=== PATIENT | male | born 1965 | race Caucasian/White ===

== ENCOUNTER → 2019-12-06 13:58 | Outpatient (BNVA) | payer MEDICARE, MEDICAID, SELFPAY | PROVIDERS: Visit Provider Nurse Practitioner Psychiatric/Mental Health | DX: F20.0 Paranoid schizophrenia (principal); F17.210 Nicotine dependence, cigarettes, uncomplicated | CPT/HCPCS: 99213 ==

== ENCOUNTER → 2020-01-03 13:25 | Outpatient (BNVA) | payer MEDICARE, MEDICAID, SELFPAY | PROVIDERS: Visit Provider Nurse Practitioner Psychiatric/Mental Health | DX: F20.0 Paranoid schizophrenia (principal); F17.210 Nicotine dependence, cigarettes, uncomplicated | CPT/HCPCS: 99213 ==

== ENCOUNTER → 2020-01-31 13:57 | Outpatient (BNVA) | payer MEDICARE, MEDICAID, SELFPAY | PROVIDERS: Visit Provider Nurse Practitioner Psychiatric/Mental Health | DX: F20.0 Paranoid schizophrenia (principal); F17.210 Nicotine dependence, cigarettes, uncomplicated | CPT/HCPCS: 99213 ==

== ENCOUNTER → 2020-02-28 07:39 | Outpatient (BNVA) | payer MEDICARE, MEDICAID, SELFPAY | PROVIDERS: Visit Provider Nurse Practitioner Psychiatric/Mental Health | DX: R32 Unspecified urinary incontinence (principal); F20.0 Paranoid schizophrenia; F17.210 Nicotine dependence, cigarettes, uncomplicated | CPT/HCPCS: 99213 ==

== ENCOUNTER → 2020-03-28 08:11 | Outpatient (BNVA) | payer MEDICARE, MEDICAID, SELFPAY | PROVIDERS: Visit Provider Nurse Practitioner Psychiatric/Mental Health | DX: F20.0 Paranoid schizophrenia (principal); F17.210 Nicotine dependence, cigarettes, uncomplicated | CPT/HCPCS: 99213 ==

== ENCOUNTER → 2020-04-25 08:15 | Outpatient (BNVA) | payer MEDICARE, MEDICAID, SELFPAY | PROVIDERS: Visit Provider Nurse Practitioner Psychiatric/Mental Health | DX: F20.0 Paranoid schizophrenia (principal); F17.210 Nicotine dependence, cigarettes, uncomplicated; Z79.899 Other long term (current) drug therapy | CPT/HCPCS: 99213 ==

== ENCOUNTER → 2020-05-23 07:33 | Outpatient (BNVA) | payer MEDICARE, MEDICAID, SELFPAY | PROVIDERS: Visit Provider Nurse Practitioner Psychiatric/Mental Health | DX: F20.0 Paranoid schizophrenia (principal); F17.210 Nicotine dependence, cigarettes, uncomplicated | CPT/HCPCS: 99213 ==

== ENCOUNTER → 2020-06-21 08:11 | Outpatient (BNVA) | payer MEDICARE, MEDICAID, SELFPAY | PROVIDERS: Visit Provider Nurse Practitioner Psychiatric/Mental Health | DX: F20.0 Paranoid schizophrenia (principal); F17.210 Nicotine dependence, cigarettes, uncomplicated | CPT/HCPCS: 99213 ==

== ENCOUNTER 2024-03-10 16:57 | Inpatient (IN) | payer MEDICARE, MEDICAID, SELFPAY ==
[2024-03-10 17:06] VITALS: BP 153/85; PULSE 119; TEMP 36.9; O2SAT 95; BMI 22.3
--- NOTE | 2024-03-10 17:10 | ED.C_ITS ---
HPI - Psych 2 General: Chief Complaint: Psychiatric Symptoms Stated Complaint: 96 Hr Hold Time Seen by Provider: 03/10/24 17:05 Source: patient and police Limitations: no limitations History of Present Illness: 58-year-old male has history of schizoph jacy has not been taking his meds patient's family is placed him on a 96-hour hold. They state that he been very erratic and seeing people not taking care of himself and are scared that he is going to harm himself or someone else with him not taking his meds and his erratic behavior. Associated symptoms: Reports auditory hallucinations and depression Review of Systems 2 Const: Denies: fever(s), chills, body aches or change in appetite ENMT: Denies: throat pain or dental pain Card: Denies: chest pain Resp: Denies: dyspnea GI: Denies: abdominal pain, nausea, vomiting or diarrhea Musc: Denies: neck pain or back pain Skin/Breast: Denies: rash Neuro: Denies: headache(s) Psych: Reports: depression, paranoia and auditory hallucinations [facility] ED 2 PFSH: Medical History Cigarette nicotine dependence Chronic paranoid schizophrenia Social History (Updated 01/03/20 @ 13:53 by Essence Berger RN) Smoking and tobacco/nicotine status: current every day tobacco/nicotine user cigarettes Packs smoked per day: 1 Quit status (tobacco/nicotine): not considering quitting Second hand smoke exposure: Yes Physical Exam 2 Const: COMMON NORMALS: no acute distress, patient oriented x3 and healthy appearing HENMT: COMMON NORMALS: normocephalic and atraumatic HEAD & SCALP: n ormocephalic and atraumatic Neck/C-Spine: COMMON NORMALS: full ROM and supple Chest: COMMONS NORMALS: normal inspection of the chest Resp: COMMON NORMALS: normal respiratory effort Cardio: COMMON NORMALS: regular rate, regular rhythm and No murmurs present (Cardio) RATE: regular rate RHYTHM: regular rhythm Extremity: COMMON NORMALS: normal to inspection and full ROM Neuro: COMMON NORMALS: patient oriented x3, moves all extremities and no focal motor deficits Psych: COMMON NORMALS: mental status grossly normal, Normal thought process present and cooperative ATTITUDE: Yes paranoid ACTIVITY/MOTOR BEHAVIOR: Y es fidgeting THOUGHT PROCESS: Normal thought process present Skin: COMMON NORMALS: no rashes or lesions noted and no wounds GENERAL SKIN EXAM: no rashes or lesions noted Course 2 Vital Signs: Vital signs: Vital Signs Temperature 98.5 F 03/10/24 17:06 Pulse Rate 119 H 03/10/24 17:06 Blood Pressure 153/85 03/10/24 17:06 Pulse Oximetry 95 03/10/24 17:06 Oxygen Delivery Me thod Room Air 03/10/24 17:06 [facility] - Psych Medical Decision Making Patient presents here with history of schizophrenia has not been taking his meds had increased psychoses he is under guardianship of his mother who is wanting him admitted he is medically cleared and will admit to the psych [facility]. Medical Records I reviewed the patient's medical records. Lab Data I reviewed the patient's lab results. 03/10/24 17:38 03/10/24 17:38 Laboratory Results WBC 9.34 10^3/uL (3.29-11.43) 03/10/24 17:38 RBC 4.80 10^6/uL (3.85-5.65) 03/10/24 17:38 Hgb 14.30 g/dL (11.27-16.99) 03/10/24 17:38 Hct 44.4 % (37-53) 03/10/24 17:38 MCV 92.5 fl (82-101) 03/10/24 17:38 MCH 29.8 pg (27-33) 03/10/24 17:38 MCHC 32.2 g/dL (30-55) 03/10/24 17:38 RDW 12.8 % (12.1-15.1) 03/10/24 17:38 Plt Count 306 10^3/cmm (157-399) 03/10/24 17:38 MPV 10.4 fL (7.4-10.4) 03/10/24 17:38 Neut % (Auto) 56.4 % 03/10/24 17:38 Lymph % (Auto) 34.3 % 03/10/24 17:38 [place] % (Auto) 6.6 % 03/10/24 17:38 Eos % (Auto) 1.3 % 03/10/24 17:38 Baso % (Auto) 1.0 % 03/10/24 17:38 Neut # (Auto) 5.27 10^3/uL (1.8-7.7) 03/10/24 17:38 Lymph # (Auto) 3.2 10^3/uL (0.8-4.8) 03/10/24 17:38 [place] # (Auto) 0.6 10^3/uL (0.2-0.9) 03/10/24 17:38 Eos # (Auto) 0.1 10^3/uL (0.0-0.8) 03/10/24 17:38 Baso # (Auto) 0.1 10^3/uL (0.0-0.1) 03/10/24 17:38 Nucleated RBC % (auto) 0 % 03/10/24 17:38 Nucleated RBCs # 0.0 /100WBC 03/10/24 17:38 Sodium 142 mmol/L (136-145) 03/10/24 17:38 Potassium 3.7 mmol/L (3.5-5.1) 03/10/24 17:38 Chloride 104 mmol/L (98-107) 03/10/24 17:38 Carbon Dioxide 26 mmol/L (22-29) 03/10/24 17:38 Anion Gap 15.7 (5-19) 03/10/24 17:38 BUN 6 mg/dL (8-23) L 03/10/24 17:38 Creatinine 0.7 mg/dL (0.7-1.2) 03/10/24 17:38 GFR Calculation 115.0 mL/min (90-130) 03/10/24 17:38 Glucose 143 mg/dL (65-115) H 03/10/24 17:38 Calculated Osmolality 294 mOsm/kg (285-295) 03/10/24 17:38 Calcium 9.1 mg/dL (8.5-10.5) 03/10/24 17:38 Total Bilirubin 0.2 mg/dL (0.15-1.2) 03/10/24 17:38 AST 16 U/L (0-40) 03/10/24 17:38 ALT 10 U/L (0-41) 03/10/24 17:38 Alkaline Phosphatase 78 U/L (40-130) 03/10/24 17:38 Total Protein 6.5 g/dL (6.6-8.7) L 03/10/24 17:38 Albumin 4.0 g/dL (3.5-5.2) 03/10/24 17:38 Globulin 2.5 g/dL (1.3-4.6) 03/10/24 17:38 Salicylates < 0.3 mg/dL (3-10) L 03/10/24 17:38 Urine Opiates Screen Negative ng/mL (Negative) 03/10/24 17:42 Acetaminophen < 5.0 ug/mL (10-30) L 03/10/24 17:38 Ur Barbiturates Screen Negative ng/mL (Negative) 03/10/24 17:42 Ur Phencyclidine Scrn Negative ng/mL (Negative) 03/10/24 17:42 Ur Amphetamines Screen Negative ng/mL (Negative) 03/10/24 17:42 U Benzodiazepines Scrn Negative ng/mL (Negative) 03/10/24 17:42 Urine Cocaine Screen Negative ng/mL (Negative) 03/10/24 17:42 U Marijuana (THC) Screen Positive ng/mL (Negative) H 03/10/24 17:42 Ethyl Alcohol < 10 mg/dL (0-10) 03/10/24 17:38 No radiology studies performed this visit Discharge Plan Discharge Admit Provider: Aiden Madsen Condition: Stable Coding Level of Care Code ED Director Of [employer]atering [employer] for [employer]
[2024-03-10] MEDS: haloperidol inj 5 mg/mL INJ 1 mL IM (17:17)
[2024-03-10] MEDS: LORazepam 2 mg/mL INJ 10 mL MDV 1 MG IM (17:18)
[2024-03-10 18:14] LABS: Amphetamines Screen Urine Negative (Negative); Barbiturates Screen Urine Negative (Negative); Benzodiazepines Screen Urine Negative (Negative); Cocaine Screen Urine Negative (Negative); Opiate Screen Urine Negative (Negative); PCP Screen Urine Negative (Negative); THC Screen Urine Positive (Negative)
[2024-03-10 18:28] LABS: Basophils # 0.1 10^3/uL (0.0-0.1); Eosinophils # 0.1 10^3/uL (0.0-0.8); Eosinophils % 1.3 %; Hematocrit 44.4 % (37-53); Lymphocytes # 3.2 10^3/uL (0.8-4.8); Lymphocytes % 34.3 %; Mean Corpuscular HGB Conc 32.2 g/dL (30-55); Mean Corpuscular Hemoglobin 29.8 pg (27-33); Mean Corpuscular Volume 92.5 fl (82-101); Mean Platelet Volume 10.4 fL (7.4-10.4); Monocytes # 0.6 10^3/uL (0.2-0.9); Monocytes % 6.6 %; Neutrophils # 5.27 10^3/uL (1.8-7.7); Neutrophils % 56.4 %; Nucleated Red Blood Cells % 0 %; Platelet Count 306 10^3/cmm (157-399); Red Cell Distribution Width 12.8 % (12.1-15.1); White Blood Count 9.34 10^3/uL (3.29-11.43)
[2024-03-10 18:53] LABS: Alanine Aminotransferase 10 U/L (0-41); Alkaline Phosphatase 78 U/L (40-130); Aspartate Amino Transferase 16 U/L (0-40); Blood Urea Nitrogen 6 mg/dL (8-23); Calcium 9.1 mg/dL (8.5-10.5); Carbon Dioxide 26 mmol/L (22-29); Chloride 104 mmol/L (98-107); Creatinine Clr Calc Pharmacy 117.7937; Globulin 2.5 g/dL (1.3-4.6); Glucose 143 mg/dL (65-115); Osmolality Calculated 294 mOsm/kg (285-295); Sodium 142 mmol/L (136-145); Total Bilirubin 0.2 mg/dL (0.15-1.2); Total Protein 6.5 g/dL (6.6-8.7)
[2024-03-10 19:11] LABS: Acetaminophen < 5.0 ug/mL (10-30); Alcohol Level < 10 mg/dL (0-10); Anion Gap 15.7 (5-19); Potassium 3.7 mmol/L (3.5-5.1); Salicylate < 0.3 mg/dL (3-10)
[2024-03-10 19:46] VITALS: BP 137/90; PULSE 103; RESP 20; O2SAT 96
[2024-03-10 20:01] VITALS: BP 137/90; PULSE 103; RESP 16; O2SAT 96
[2024-03-10 20:04] VITALS: BP 120/77; PULSE 105; RESP 18; TEMP 36.8; O2SAT 96
--- NOTE | 2024-03-10 20:38 | PC.NURSE ---
96 Hour Involuntary Hold Rights have been read to the patient and a copy of the same has been given to him. Patient verbally acknowledges understanding of Rights. Pressure Controller Sade Manriquez was present at the time of presentation of Rights.
[2024-03-11 06:00] VITALS: BP 92/54; PULSE 99; RESP 18; TEMP 36.7; O2SAT 97
--- NOTE | 2024-03-11 07:36 | PC.NURSE ---
During morning assessment, patient denies SI, HI, AVH, depression, and anxiety. Patient denied any pain and any questions or concerns.
--- NOTE | 2024-03-11 13:34 | P.NPUHP_ITS ---
Providers/Chief Complaint 2 Admitting Physician: Aiden Madsen MD Chief Complaint: 96 Hr Hold HPI NPU History of Present Illness Trace Ames is a 58 year old male who presented to the emergency department on a 96-hour hold with significant affidavits provided by the patient's family. Patient was admitted to the neuropsychiatric unit for further evaluation and treatment. Patient had stated that they had selected the wrong person to be placed in the hospital and states that he did not need to be here. Several of the supportive affidavits had suggested that the patient had not been compliant with his psychiatric medication. He had not been taking care of himself as he had not been showering or brushing for months. There had been concern that the patient was giving his items away to strangers. The patient had denied this. He was a poor historian and stated that he had been living at his apartment at the [facility] and that he had been taking medication for his mental health problems but that he had not been taking it in more than a year. He had reported that once his Invega was taken for 4 years he no longer needed to take it. There had been reports in the affidavit that the patient had been scaring his neighbors that live around him due to his alleged bizarre behavior. The patient had indicated that he did not like to be around others. He states that he tolerates his niece managing his bills as he reports that he struggles with making payments by himself. He does report that he has been able to cook at home. He denies having depressed mood. He denies having any auditory or visual hallucinations. He minimizes any use of illicit drugs. He reports that he had not been hospitalized recently in any psychiatric facility. Inpatient psychiatric history: Multiple inpatient hospitalizations with 1 previous inpatient hospitalization in 2019 at the neuropsychiatric unit. Outpatient psychiatric history: Last seen 1 year ago through case management services in January 2023 at the behavioral health clinic. Previous medications at that time included monthly Invega sustain a 156 mg monthly. Previous diagnoses include schizophrenia. Previous records that indicated the patient had resided in the residential treatment facility for chronic mental illness in 2019. Legal history: Unknown Drug and alcohol history: None reported Allergies: No known drug allergies Medical history: None reported Surgical history: None Current medications: none reported Social history: Patient reports that he was born in [facility] and raised by his biological parents. He states having no siblings. He states that he graduated from [employer] school. He states that he is currently on disability and not working. He had previously been under guardianship but reports that his biological mother is . He states that a woman named Cindy is his payee as he lives in the [facility] independently. He has never been . He denied any history of sexual physical or emotional abuse. Meds NPU Home Medications Medication Instructions Recorded Confirmed Last Taken Type gabapentin 300 mg capsule 300 mg PO .QHS #30 caps 06/21/20 02/07/23 02/06/23 Rx trazodone 100 mg tablet 100 mg PO BEDTIME 01/31/23 02/07/23 02/06/23 History paliperidone palmitate 156 mg/mL 156 mg IM Q30D 02/07/23 02/07/23 Unknown History intramuscular syringe (Invega Sustenna) Allergies Allergy/AdvReac Type Severity Reaction Status Date / Time No Known Allergies Allergy Verified 03/10/24 17:12 PFSH NPU 2 PFSH: Medical History Cigarette nicotine dependence Chronic paranoid schizophrenia Social History (Updated 01/03/20 @ 13:53 by Essence Berger RN) Smoking and tobacco/nicotine status: current every day tobacco/nicotine user cigarettes Packs smoked per day: 1 Quit status (tobacco/nicotine): not considering quitting Second hand smoke exposure: Yes Mental Status Exam 2 MSE Comments: Patient is a casually dressed male who appeared older than his stated age. He had poor hygiene with a very disheveled appearance. There was no evidence of any abnormal involuntary motor movements, tics, or tremors. There was considerable psychomotor slowing. His speech was scant and diminished in volume with decreased rate and decrease in spontaneity. His mood was described as fine. His affect was odd and subdued. His thought process was linear but appeared to derailed later during the interview. His thought content showed evidence of paranoia with no active homicidal or suicidal ideation. He did at times appear to be responding to internal stimuli despite minimizing any auditory or visual hallucinations. His attention span appeared poor. There was significant evidence of apathy and a motivation on exam. He was alert and oriented to person place and time but not recent for being here. His insight is impaired. His judgment is poor. His impulse control appeared limited at this time. Vitals/I&O/Wt Last Vital Signs Temp 98.0 F 03/11/24 06:00 Pulse 99 03/11/24 06:00 Resp 18 03/11/24 06:00 BP 92/54 03/11/24 06:00 Pulse Ox 97 03/11/24 06:00 O2 Del Method Room Air 03/10/24 20:04 Weight last 48 hrs Weight 72.575 kg Data NPU 03/10/24 17:38 03/10/24 17:38 A&P Assessment and plan (1) Chronic paranoid schizophrenia: (2) Cigarette nicotine dependence: Qualifiers: Substance use status: uncomplicated Qualified Code(s): F17.210 - Nicotine dependence, cigarettes, uncomplicated Plan 58-year-old male with chronic paranoid schizophrenia currently not taking his medications placed here involuntarily with significant disorganized thinking and disorganized behavior along with an inability to manage his self care. #1.? Engage patient in individual milieu and group therapy. #2?? Recommend sober living treatment at the highest level of care to which the patient is willing to commit #3? TO-15 minute checks #4?? Will attempt to gather collateral information #5 Restart Invega IM Invega 234mg today with oral invega 3mg at night as well. ? Involuntary Hold Information 2 96 Hour Hold: 96 Hour Involuntary Admission: No Attestations NPU 2 Medical Necessity Statement*: Inpatient hospitalization is medically necessary and deemed to ?be ?the clinically appropriate intervention ?at this time.? We will monitor/initiate medications and make changes as indicated.? The patient will be in the hospital for over 2 midnights.? The patient?s likely length of stay 7-10 days. Coding Level of Care Code Acute Code for Chg Fwd Diagnoses Chronic paranoid schizophrenia F20.0 Cigarette nicotine dependence without complication F17.210 Substance use status: uncomplicated
[2024-03-11 14:00] VITALS: BP 119/80; PULSE 91; RESP 20; TEMP 36.6; O2SAT 95
[2024-03-11] MEDS: paliperidone palmitate 234 mg Syringe IM (15:10)
--- NOTE | 2024-03-11 15:19 | PC.NURSE ---
Administered Invega 234mg/1.5mL into patient's left deltoid muscle. Patient tolerated well. Lot:[id number] EXP: JUL 2025
[2024-03-11] MEDS: nicotine 4 mg lozenge MUCOUS MEM (18:21)
[2024-03-11 20:10] VITALS: BP 111/75; PULSE 115; RESP 17; TEMP 36.6; O2SAT 96
[2024-03-12 06:00] VITALS: BP 95/70; PULSE 111; RESP 17; TEMP 36.6; O2SAT 95
[2024-03-12] MEDS: paliperidone ER 6 mg Tablet PO (10:48)
[2024-03-12 13:51] VITALS: BP 114/75; PULSE 106; RESP 16; O2SAT 96
--- NOTE | 2024-03-12 14:57 | P.NPUPN_ITS ---
Subjective NPU 2 Subjective: 58-year-old male with a history of schiz ophrenia admitted with increased paranoia and noncompliance with his medications for more than a year. Patient was given IM Invega 234 mg yesterday with no side effects. The patient had continued to isolate himself on the milieu. He had reported no previous problems with Invega but continue to question whether he needed to be here at this time. Patient had reported that he had been able to manage his own care at his apartments despite others claiming the patient was behaving unusually and [facility] He had required significant prompting for completion of activities of daily living. Mental Status Exam 2 MSE Comments: Patient is a casually dressed male who appeared older than his stated age. He had poor hygiene with a very disheveled appearance. There was no evidence of any abnormal involuntary motor movements, tics, or tremors. There was considerable psychomotor slowing. His speech was more productive today with decreased volume with decreased rate and decrease in spontaneity. His mood was described as fine. His affect was odd and subdued. His thought process was linear but appeared to derailed later during the interview. His thought content showed evidence of paranoia with no active homicidal or suicidal ideation. He did at times appear to be responding to internal stimuli despite minimizing any auditory or visual hallucinations. His attention span appeared poor. There was significant evidence of apathy and amotivation on exam. He was alert and oriented to person place and time but not situation. His insight is impaired. His judgment is poor. His impulse control appeared limited at this time. Vitals/I&O/Wt Last Vital Signs Temp 98 F 03/12/24 06:00 Pulse 106 H 03/12/24 13:51 Resp 16 03/12/24 13:51 BP 114/75 03/12/24 13:51 Pulse Ox 96 03/12/24 13:51 O2 Del Method Room Air 03/12/24 13:51 Weight last 48 hrs Weight 72.575 kg Data NPU 03/10/24 17:38 03/10/24 17:38 A&P Assessment and plan (1) Chronic paranoid schizophrenia: (2) Cigarette nicotine dependence: Qualifiers: Substance use status: uncomplicated Qualified Code(s): F17.210 - Nicotine dependence, cigarettes, uncomplicated Plan 58-year-old male with chronic paranoid schizophrenia currently not taking his medications placed here involuntarily with significant disorganized thinking and disorganized behavior along with an inability to manage his self care. #1.? Engage patient in individual milieu and group therapy. #2?? Recommend sober living treatment at the highest level of care to which the patient is willing to commit #3? TO-15 minute checks #4?? Will attempt to gather collateral information #5 Continue Invega IM Invega 234mg (given on 03/11/24) with increase in oral invega to 6mg at night as well. ? Involuntary Hold Information 2 96 Hour Hold: 96 Hour Involuntary Admission: No Attestations NPU 2 Medical Necessity Statement*: Inpatient hospitalization is medically necessary and deemed to ?be ?the clinically appropriate intervention ?at this time.? We will monitor/initiate medications and make changes as indicated.? The patient?s likely length of stay 7-10 days. Coding Level of Care Code Acute Code for Chg Fwd Diagnoses Chronic paranoid schizophrenia F20.0 Cigarette nicotine dependence without complication F17.210 Substance use status: uncomplicated
--- NOTE | 2024-03-12 18:35 | PC.NURSE ---
ROOM SEARCH PREFORMED BY STAFF NO CONTRABAND FOUND.
[2024-03-12 21:55] VITALS: BP 103/63; PULSE 79; RESP 16; TEMP 36.6; O2SAT 94
[2024-03-13] MEDS: acetaminophen 325 mg Tablet 650 MG PO (03:03)
[2024-03-13 06:00] VITALS: BP 100/65; PULSE 79; RESP 18; TEMP 36.3; O2SAT 93; BMI 21.2
[2024-03-13] MEDS: paliperidone ER 6 mg Tablet PO (08:07)
[2024-03-13 14:00] VITALS: BP 93/62; PULSE 85; RESP 20; TEMP 36.7; O2SAT 96
--- NOTE | 2024-03-13 14:46 | P.NPUPN_ITS ---
Subjective NPU 2 Subjective: 58-year-old male with a history of schiz ophrenia admitted with increased paranoia and noncompliance with his medications for more than a year. Patient had reported that he was feeling better. He reported that he was capable of [place] despite claims that the patient had not been engaged in his own self-care as well as managing his affairs in home. He had reported that he did not have anyone to help him with taking his medications. He had continued to require prompting to engage in his own self-care. He was minimally interactive on the milieu. He reported no side effects from the Invega IM that was started on 03/11/2024. Patient was given IM Invega 234 mg yesterday with no side effects. The patient had continued to isolate himself on the milieu. He had reported no previous problems with Invega but continue to question whether he needed to be here at this time. Patient had reported that he had been able to manage his own care at his apartments despite others claiming the patient was behaving unusually and had been living in [facility]. He had required significant prompting for completion of activities of daily living. Mental Status Exam 2 MSE Comments: Patient is a casually dressed male who appeared older than his stated age. He had poor hygiene with a very disheveled appearance. There was no evidence of any abnormal involuntary motor movements, tics, or tremors. There was considerable psychomotor slowing. His speech continued to show increased latency, normal rate and decreased volume. His mood was described as okay. His affect was odd and subdued. His thought process was linear but appeared to derailed later during the interview. His thought content showed evidence of paranoia with no active homicidal or suicidal ideation. He did at times appear to be responding to internal stimuli despite minimizing any auditory or visual hallucinations. His attention span appeared poor. There was significant evidence of apathy and amotivation on exam. He was alert and oriented to person place and time but not situation. His insight is impaired. His judgment is poor. His impulse control appeared limited at this time. Vitals/I&O/Wt Last Vital Signs Temp 98.1 F 03/13/24 14:00 Pulse 85 03/13/24 14:00 Resp 20 H 03/13/24 14:00 BP 93/62 03/13/24 14:00 Pulse Ox 96 03/13/24 14:00 O2 Del Method Room Air 03/13/24 14:00 Weight last 48 hrs Weight 69.127 kg Data NPU 03/10/24 17:38 03/10/24 17:38 A&P Assessment and plan (1) Chronic paranoid schizophrenia: (2) Cigarette nicotine dependence: Qualifiers: Substance use status: uncomplicated Qualified Code(s): F17.210 - Nicotine dependence, cigarettes, uncomplicated Plan 58-year-old male with chronic paranoid schizophrenia currently not taking his medications placed here involuntarily with significant disorganized thinking and disorganized behavior along with an inability to manage his self care. #1.? Engage patient in individual milieu and group therapy. #2?? Recommend sober living treatment at the highest level of care to which the patient is willing to commit #3? TO-15 minute checks #4?? Will attempt to gather collateral information #5 Continue Invega IM Invega 234mg (given on 03/11/24) and oral invega 6mg at night. Previous records indicated good response to invega oral but patient had compliance with follow up once he was in an outpatient setting and thereby stopped all antipsychotics. ? Involuntary Hold Information 2 96 Hour Hold: 96 Hour Involuntary Admission: No Attestations NPU 2 Medical Necessity Statement*: Inpatient hospitalization is medically necessary and deemed to ?be ?the clinically appropriate intervention ?at this time.? We will monitor/initiate medications and make changes as indicated.? The patient?s likely length of stay 5-7 days. Coding Level of Care Code Acute Code for Chg Fwd Diagnoses Chronic paranoid schizophrenia F20.0 Cigarette nicotine dependence without complication F17.210 Substance use status: uncomplicated
[2024-03-13 19:22] VITALS: BP 91/78; PULSE 110; RESP 16; TEMP 36.3; O2SAT 95
[2024-03-14 06:00] VITALS: BP 99/72; PULSE 116; RESP 15; TEMP 36.7; O2SAT 96
[2024-03-14] MEDS: paliperidone ER 6 mg Tablet PO (08:34)
[2024-03-14] MEDS: nicotine 4 mg lozenge MUCOUS MEM (08:34)
--- NOTE | 2024-03-14 11:03 | PC.NURSE ---
room search preformed no contra band found. beds stripped and cleaned.
[2024-03-14] MEDS: nicotine 2 mg Gum BUCCAL ×3 (11:53→17:29)
[2024-03-14 14:00] VITALS: BP 115/68; PULSE 118; RESP 16; TEMP 36.6; O2SAT 95
--- NOTE | 2024-03-14 15:45 | P.NPUPN_ITS ---
Subjective NPU 2 Subjective: 58-year-old male with a history of schiz ophrenia admitted with increased paranoia and noncompliance with his medications for more than a year. Patient had acknowledged noncompliance with medications for greater than a year. He reports no side effects from his Invega. He was more engageable on the unit but continued just ask if he could leave here. Patient had reported that he [place] a [place] and would be willing to follow-up on an outpatient basis with his psychiatrist again. He had reported adequate sleep. He had continued to require some prompting for completion of activities of daily living but appeared more interested in self-care today. He had reported having struggles with motivation and initiation of tasks at home. Mental Status Exam 2 MSE Comments: Patient is a casually dressed male who appeared older than his stated age. He had poor hygiene with a very disheveled appearance. There was no evidence of any abnormal involuntary motor movements, tics, or tremors. There was considerable psychomotor slowing. His speech continued to show increased latency, normal rate and normal volume. His mood was described as allright. His affect remained blunted. His thought process was linear but superficial. His thought content showed evidence of paranoia with no active homicidal or suicidal ideation. He did not appear to be responding to internal stimuli and minimized auditory or visual hallucinations. His attention span appeared poor. There was significant evidence of apathy and amotivation on exam. He was alert and oriented to person, place, and time but not situation. His insight is impaired. His judgment is poor. His impulse control appeared limited at this time. Vitals/I&O/Wt Last Vital Signs Temp 97.9 F 03/14/24 14:00 Pulse 118 H 03/14/24 14:00 Resp 16 03/14/24 14:00 BP 115/68 03/14/24 14:00 Pulse Ox 95 03/14/24 14:00 O2 Del Method Room Air 03/14/24 14:00 Weight last 48 hrs Weight 69.127 kg Data NPU 03/10/24 17:38 03/10/24 17:38 A&P Assessment and plan (1) Chronic paranoid schizophrenia: (2) Cigarette nicotine dependence: Qualifiers: Substance use status: uncomplicated Qualified Code(s): F17.210 - Nicotine dependence, cigarettes, uncomplicated Plan 58-year-old male with chronic paranoid schizophrenia currently not taking his medications placed here involuntarily with significant disorganized thinking and disorganized behavior along with an inability to manage his self care. #1.? Engage patient in individual milieu and group therapy. #2?? Recommend sober living treatment at the highest level of care to which the patient is willing to commit #3? TO-15 minute checks #4?? Will attempt to gather collateral information #5 Continue Invega IM Invega 234mg (given on 03/11/24) and oral invega 6mg at night. Next IM Invega 156mg to be given on or after 03/16/2024. ? Involuntary Hold Information 2 96 Hour Hold: 96 Hour Involuntary Admission: No Attestations NPU 2 Medical Necessity Statement*: Inpatient hospitalization is medically necessary and deemed to ?be ?the clinically appropriate intervention ?at this time.? We will monitor/initiate medications and make changes as indicated.? The patient?s likely length of stay 2-4 days. Coding Level of Care Code Acute Code for Chg Fwd Diagnoses Chronic paranoid schizophrenia F20.0 Cigarette nicotine dependence without complication F17.210 Substance use status: uncomplicated
[2024-03-14 19:58] VITALS: BP 99/65; PULSE 83; RESP 16; TEMP 36.9; O2SAT 99
[2024-03-15 06:35] VITALS: BP 108/70; PULSE 88; RESP 17; TEMP 37; O2SAT 95
[2024-03-15] MEDS: paliperidone ER 6 mg Tablet PO (07:40)
[2024-03-15] MEDS: nicotine 2 mg Gum BUCCAL ×2 (11:08→14:40)
[2024-03-15 14:00] VITALS: BP 91/65; PULSE 110; RESP 20; TEMP 36.6; O2SAT 95
--- NOTE | 2024-03-15 17:17 | P.NPUPN_ITS ---
Subjective NPU 2 Subjective: 58-year-old male with a history of schiz ophrenia admitted with increased paranoia and noncompliance with his medications for more than a year. The patient had reported that he was feeling better. He appeared to show improvement with the oral Invega at this time and was agreeable with a long-term plan of remaining remaining on IM Invega on a monthly basis. Previous records had supported that the patient had done very well on this medication and he expressed desire to return back to his previous apartment locally. He reported no side effects from his medication. He had denied hearing voices and stated that his thoughts were clearer. He had shown improved ability to manage self- care with patient having showered without prompting and appeared to brush his teeth as well. The patient did have a payee to help manage his funds but states that he had been able to care for himself in the home environment without other assistance. Mental Status Exam 2 MSE Comments: Patient is a casually dressed male who appeared older than his stated age. He had improved hygiene and appeared less disheveled today. There was no evidence of any abnormal involuntary motor movements, tics, or tremors. There was mild psychomotor slowing. His speech continued to show slight increase in latency with normal volume today. His mood was described as better. His affect appeared brighter. His thought process was linear but superficial. His thought content showed no evidence of paranoia with no active homicidal or suicidal ideation. He did not appear to be responding to internal stimuli and minimized auditory or visual hallucinations. His attention span appeared better. Improved motivation appreciated. He was alert and oriented to person, place, and time today. His insight is improving. His judgment was poor. His impulse control appeared limited at this time. Vitals/I&O/Wt Last Vital Signs Temp 98 F 03/15/24 14:00 Pulse 110 H 03/15/24 14:00 Resp 20 H 03/15/24 14:00 BP 91/65 03/15/24 14:00 Pulse Ox 95 03/15/24 14:00 O2 Del Method Room Air 03/14/24 19:58 Data NPU 03/10/24 17:38 03/10/24 17:38 A&P Assessment and plan (1) Chronic paranoid schizophrenia: (2) Cigarette nicotine dependence: Qualifiers: Substance use status: uncomplicated Qualified Code(s): F17.210 - Nicotine dependence, cigarettes, uncomplicated Plan 58-year-old male with chronic paranoid schizophrenia currently not taking his medications placed here involuntarily with significant disorganized thinking and disorganized behavior along with an inability to manage his self care. #1.? Engage patient in individual milieu and group therapy. #2?? Recommend sober living treatment at the highest level of care to which the patient is willing to commit #3? TO-15 minute checks #4?? Will attempt to gather collateral information #5 Continue Invega IM Invega 234mg (given on 03/11/24) and oral invega 6mg at night. Next IM Invega 156mg to be given on 03/16/2024 with likely discharge tommorow. ? Involuntary Hold Information 2 96 Hour Hold: 96 Hour Involuntary Admission: No Attestations NPU 2 Medical Necessity Statement*: Inpatient hospitalization is medically necessary and deemed to ?be ?the clinically appropriate intervention ?at this time.? We will monitor/initiate medications and make changes as indicated.? The patient?s likely length of stay 2-4 days. Coding Level of Care Code Acute Code for Chg Fwd Diagnoses Chronic paranoid schizophrenia F20.0 Cigarette nicotine dependence without complication F17.210 Substance use status: uncomplicated
[2024-03-15 19:49] VITALS: BP 94/64; PULSE 91; RESP 17; TEMP 36.6; O2SAT 93
[2024-03-15] MEDS: trazodone 50 mg Tablet PO (21:26)
[2024-03-16 06:00] VITALS: BP 119/75; PULSE 97; RESP 16; TEMP 36.6; O2SAT 96
[2024-03-16] MEDS: nicotine 2 mg Gum BUCCAL (07:33)
[2024-03-16] MEDS: paliperidone ER 6 mg Tablet PO (07:33)
[2024-03-16] MEDS: paliperidone palmitate 156 mg Syringe IM (07:35)
--- NOTE | 2024-03-16 07:38 | PC.NURSE ---
Administered Invega Sustenna 156mg/mL into patient's right deltoid muscle. Patient tolerated well. LOT: [id number] EXP 06/2025
--- NOTE | 2024-03-16 11:07 | P.NPUDS_ITS ---
Diagnoses at Discharge Discharge Diagnosis (1) Chronic paranoid schizophrenia: Status: Chronic (2) Cigarette nicotine dependence: Status: Chronic Qualifiers: Substance use status: uncomplicated Qualified Code(s): F17.210 - Nicotine dependence, cigarettes, uncomplicated Reason for Visit Reason for Visit: 96 Hr Hold Brief History: HPI NPU History of Present Illness Trace Ames is a 58 year old male who presented to the emergency department on a 96-hour hold with significant affidavits provided by the patient's family. Patient was admitted to the neuropsychiatric unit for further evaluation and treatment. Patient had stated that they had selected the wrong person to be placed in the hospital and states that he did not need to be here. Several of the supportive affidavits had suggested that the patient had not been compliant with his psychiatric medication. He had not been taking care of himself as he had not been showering or brushing for months. There had been concern that the patient was giving his items away to strangers. The patient had denied this. He was a poor historian and stated that he had been living at his apartment at the [facility] and that he had been taking medication for his mental health problems but that he had not been taking it in more than a year. He had reported that once his Invega was taken for 4 years he no longer needed to take it. There had been reports in the affidavit that the patient had been scaring his neighbors that live around him due to his alleged bizarre behavior. The patient had indicated that he did not like to be around others. He states that he tolerates his niece managing his bills as he reports that he struggles with making payments by himself. He does report that he has been able to cook at home. He denies having depressed mood. He denies having any auditory or visual hallucinations. He minimizes any use of illicit drugs. He reports that he had not been hospitalized recently in any psychiatric facility. Inpatient psychiatric history: Multiple inpatient hospitalizations with 1 previous inpatient hospitalization in 2019 at the neuropsychiatric unit. Outpatient psychiatric history: Last seen 1 year ago through case management services in January 2023 at the [facility]. Previous medications at that time included monthly Invega sustain a 156 mg monthly. Previous diagnoses include schizophrenia. Previous records that indicated the patient had resided in the residential treatment facility for chronic mental illness in 2019. Legal history: Unknown Drug and alcohol history: None reported Allergies: No known drug allergies Medical history: None reported Surgical history: None Current medications: none reported Social history: Patient reports that he was born in [facility] and raised by his biological parents. He states having no siblings. He states that he graduated from [employer]. He states that he is currently on disability and not working. He had previously been under guardianship but reports that his biological mother is . He states that a woman named Cindy is his payee as he lives in the [facility] independently. He has never been . He denied any history of sexual physical or emotional abuse. Hospital Course Hospital Course During the hospitalization, the patient had routine laboratory studies which were within normal limits except for a few outliers.? Additionally, there was a general medical evaluation which was also within normal limits and revealed no new acute processes. ?At the time of discharge, lethality was denied and psychosis was resolving.? Mood and anxiety were well managed.? The patient endorsed a plan to avoid all drugs of abuse and follow up with the aftercare recommendations of the treatment team.? The patient was evaluated and deemed to be absent credible lethality and had achieved the maximum benefit from an i npatient hospitalization, and so was discharged. ? The patient was given Invega Sustenna 234 mg 03/11/2024 and 156 mg on 03/16/2024 with improvement in psychosis while remaining on oral paliperidone that would be tapered 1 week after discharge. Involuntary Hold Information 96 Hour Hold: 96 Hour Involuntary Admission: No Mental Status Exam MSE Comments: Patient is a casually dressed male who appeared older than his stated age. He had improved hygiene and normal gait. There was no evidence of any abnormal involuntary motor movements, tics, or tremors. There was less psychomotor slowing. His speech was normal in rate, rhythm and prosody on discharge. His mood was described as better. His affect appeared brighter. His thought process was linear and more goal directed. His thought content showed no evidence of paranoia with no active homicidal or suicidal ideation. He did not appear to be responding to internal stimuli and minimized auditory or visual hallucinations. His attention span appeared improved. He was alert and oriented to person, place, and time today. His insight is improving. His judgment was adequate. His impulse control appeared fair at the time of discharge. Discharge Data Studies Completed and Pending: Laboratory Results WBC 9.34 10^3/uL (3.2 9-11.43) 03/10/24 17:38 RBC 4.80 10^6/uL (3.8 5-5.65) 03/10/24 17:38 Hgb 14.30 g/dL (11.27 -16.99) 03/10/24 17:38 Hct 44.4 % (37-53) 03/10/24 17:38 MCV 92.5 fl (82-101) 03/10/24 17:38 MCH 29.8 pg (27-33) 03/10/24 17:38 MCHC 32.2 g/dL (30-55) 03/10/24 17:38 RDW 12.8 % (12.1-15.1 ) 03/10/24 17:38 Plt Count 306 10^3/cmm (157 -399) 03/10/24 17:38 MPV 10.4 fL (7.4-10.4 ) 03/10/24 17:38 Neut % (Auto) 56.4 % 03/10/24 17:38 Lymph % (Auto) 34.3 % 03/10/24 17:38 [place] % (Auto) 6.6 % 03/10/24 17:38 Eos % (Auto) 1.3 % 03/10/24 17:38 Baso % (Auto) 1.0 % 03/10/24 17:38 Neut # (Auto) 5.27 10^3/uL (1.8 -7.7) 03/10/24 17:38 Lymph # (Auto) 3.2 10^3/uL (0.8- 4.8) 03/10/24 17:38 [place] # (Auto) 0.6 10^3/uL (0.2- 0.9) 03/10/24 17:38 Eos # (Auto) 0.1 10^3/uL (0.0- 0.8) 03/10/24 17:38 Baso # (Auto) 0.1 10^3/uL (0.0- 0.1) 03/10/24 17:38 Nucleated RBC % (a uto) 0 % 03/10/24 17:38 Nucleated RBCs # 0.0 /100WBC 03/10/24 17:38 Sodium 142 mmol/L (136-1 45) 03/10/24 17:38 Potassium 3.7 mmol/L (3.5-5 .1) 03/10/24 17:38 Chloride 104 mmol/L (98-10 7) 03/10/24 17:38 Carbon Dioxide 26 mmol/L (22-29) 03/10/24 17:38 Anion Gap 15.7 (5-19) 03/10/24 17:38 BUN 6 mg/dL (8-23) L 03/10/24 17:38 Creatinine 0.7 mg/dL (0.7-1. 2) 03/10/24 17:38 GFR Calculation 115.0 mL/min (90- 130) 03/10/24 17:38 Glucose 143 mg/dL (65-115 ) H 03/10/24 17:38 Calculated Osmolal ity 294 mOsm/kg (285- 295) 03/10/24 17:38 Calcium 9.1 mg/dL (8.5-10 .5) 03/10/24 17:38 Total Bilirubin 0.2 mg/dL (0.15-1 .2) 03/10/24 17:38 AST 16 U/L (0-40) 03/10/24 17:38 ALT 10 U/L (0-41) 03/10/24 17:38 Alkaline Phosphata se 78 U/L (40-130) 03/10/24 17:38 Total Protein 6.5 g/dL (6.6-8.7 ) L 03/10/24 17:38 Albumin 4.0 g/dL (3.5-5.2 ) 03/10/24 17:38 Globulin 2.5 g/dL (1.3-4.6 ) 03/10/24 17:38 Salicylates < 0.3 mg/dL (3-10 ) L 03/10/24 17:38 Urine Opiates Scre en Negative ng/mL (N egative) 03/10/24 17:42 Acetaminophen < 5.0 ug/mL (10-3 0) L 03/10/24 17:38 Ur Barbiturates Sc reen Negative ng/mL (N egative) 03/10/24 17:42 Ur Phencyclidine S crn Negative ng/mL (N egative) 03/10/24 17:42 Ur Amphetamines Sc reen Negative ng/mL (N egative) 03/10/24 17:42 U Benzodiazepines Scrn Negative ng/mL (N egative) 03/10/24 17:42 Urine Cocaine Scre en Negative ng/mL (N egative) 03/10/24 17:42 U Marijuana (THC) Screen Positive ng/mL (N egative) H 03/10/24 17:42 Ethyl Alcohol < 10 mg/dL (0-10) 03/10/24 17:38 Vitals: Last Vital Signs Temp 98 F 03/16/24 06:00 Pulse 97 03/16/24 06:00 Resp 16 03/16/24 06:00 BP 119/75 03/16/24 06:00 Pulse Ox 96 03/16/24 06:00 O2 Del Method Room Air 03/14/24 19:58 Discharge Plan Discharge Patient Disposition: Home Condition: Stable Prescriptions: New paliperidone 3 mg tablet extended release 24hr 3 mg PO DAILY 7 Days Qty: 7 0RF Rx Instructions: Take for 7 days then discontinue (he is on Invega IM) Invega Sustenna 156 mg/mL syringe 156 mg IM Q30D Qty: 1 1RF Rx Instructions: Patient due date for next IM Invega is 04/15/24 Discharge Orders: Discharge Order (Routine); Ordered 03/16/24 Ordered By: Nolan Tse Referrals: [facility] [Other] - 03/23/24 1:15 pm (Follow up with Dr. Maximiliano Mishra. ) [facility] [Outside] - 03/18/24 2:30 pm (Initial appointment 03/18/24 @ 2:30 pm with Keo Mistry.) Discharge Diet: Usual diet Discharge Activity: Resume usual activity Patient Instructions: Paliperidone (By mouth) (Invega), Psychotic Disorder (DC), Opioid Safety Discharge Attestations NPU Time Spent in Discharge Care*: less than 30 min Specific Discharge Activities: Specific discharge activities: educating patient and discussing with nurse case management/social workers/dc planners Coding Level of Care Code Acute Code for Chg Fwd Diagnoses Chronic paranoid schizophrenia F20.0 Cigarette nicotine dependence without complication F17.210 Substance use status: uncomplicated
--- NOTE | 2024-03-16 11:17 | DCPLANNER ---
IMM was given to and explained to pt and copy placed in his file.
[2024-03-16 11:23] VITALS: BP 119/75; PULSE 97; RESP 16; TEMP 36.6; O2SAT 96
== END 2024-03-16 14:04 | disposition home or self-care (01) | DRG 885 ==
LOC: ER 17:12 → NP 18:43
PROVIDERS: Admitting Provider Psychiatry & Neurology Psychiatry; Emergency Provider Emergency Medicine; Visit Provider Psychiatry & Neurology Psychiatry
DX: F20.0 Paranoid schizophrenia (principal); F17.210 Nicotine dependence, cigarettes, uncomplicated; Z91.148 Patient's other noncompliance with medication regimen for other reason
CPT/HCPCS: 36415; 80053; 80306; 80307; 85025; 96372; 97150; 97165; 99285; J1630; J2060

== ENCOUNTER 2024-04-01 23:46 | Emergency (ER) | payer MEDICARE, MEDICAID, SELFPAY ==
[2024-04-01 23:47] VITALS: PULSE 116; TEMP 36.4; O2SAT 91; BMI 21.2
[2024-04-01 23:59] VITALS: BP 122/79; RESP 18; O2SAT 91
[2024-04-02 00:11] LABS: Basophils # 0.1 10^3/uL (0.0-0.1); Basophils % 0.9 %; Eosinophils # 0.4 10^3/uL (0.0-0.8); Eosinophils % 3.5 %; Hematocrit 46.4 % (37-53); Lymphocytes # 4.7 10^3/uL (0.8-4.8); Lymphocytes % 45.2 %; Mean Corpuscular HGB Conc 32.5 g/dL (30-55); Mean Corpuscular Hemoglobin 30.1 pg (27-33); Mean Corpuscular Volume 92.4 fl (82-101); Mean Platelet Volume 9.8 fL (7.4-10.4); Monocytes # 0.9 10^3/uL (0.2-0.9); Monocytes % 8.5 %; Neutrophils # 4.31 10^3/uL (1.8-7.7); Neutrophils % 41.6 %; Nucleated Red Blood Cells % 0 %; Platelet Count 276 10^3/cmm (157-399); Red Blood Count 5.02 10^6/uL (3.85-5.65); Red Cell Distribution Width 13.4 % (12.1-15.1); White Blood Count 10.34 10^3/uL (3.29-11.43)
--- NOTE | 2024-04-02 00:12 | ED.C_ITS ---
HPI - Psych 2 General: Chief Complaint: Psychiatric Symptoms Stated Complaint: 96 hour hold Time Seen by Provider: 04/01/24 23:47 History of Present Illness: Patient brought in for 96-hour hold secondary to 3 affidavits. Affidavits said things like he is a very unkempt person his house is a mess he left homeless people in and out at all times he gives away his money and food stamps he does not take his medicine or follow-up with his doctors appointments and he is made statements such as he wants to lay down and . The police state that his house was one of the nicest he seen in his area and does not substantiate the affidavits. Upon talking to the patient he denies suicidal or homicidal ideation he is alert oriented coherent and pleasant patient was started on Invega here during his last stay approximately 2 weeks ago therefore he is due for his next Invega shot in another 2 weeks so therefore he cannot be noncompliant with medication. He does admit to missing his podiatry appointment today to get his toenails trimmed. Patient denies any complaints at this time. PFSH ED 2 PFSH: Medical History (Updated 04/02/24 @ 00:18 by Victor M Lopez DO) Psychiatric care Cigarette nicotine dependence Chronic paranoid schizophrenia Social History (Updated 01/03/20 @ 13:53 by Essence Berger RN) Smoking and tobacco/nicotine status: current every day tobacco/nicotine user cigarettes Packs smoked per day: 1 Quit status (tobacco/nicotine): not considering quitting Second hand smoke exposure: Yes Physical Exam 2 Const: COMMON NORMALS: no acute distress, average body habitus, patient oriented x3, no limitations, healthy appearing, alert and well nourished HENMT: COMMON NORMALS: normocephalic, hearing grossly normal bilaterally, external ears normal, Normal external nose present, moist oral mucous membranes and oropharynx normal HEAD & SCALP: normocephalic NOSE: Normal external nose present EXTERNAL EAR: Yes external ears normal Neck/C-Spine: COMMON NORMALS: no JVD Chest: COMMONS NORMALS: normal inspection of the chest and normal palpation of entire chest wall Resp: COMMON NORMALS: normal respiratory effort, No retractions, No use of accessory muscles and clear to auscultation bilaterally AUSCULTATION: clear to auscultation bilaterally Cardio: COMMON NORMALS: no JVD, regular rate, regular rhythm, S1 normal heart sound present, S2 normal heart sound present, No gallops present (Cardio), No clicks present (Cardio), No murmurs present (Cardio) and No rub (Cardio) R ATE: regular rate RHYTHM: regular rhythm HEART SOUNDS: S1 normal heart sound present and S2 normal heart sound present GI: COMMON NORMALS: Normal to inspection, nondistended, normoactive bowel sounds present, Soft to palpation, non-tender, No hepatosplenomegaly present and no masses PALPATION: Yes Soft to palpation and Yes No hepatosplenomegaly present Neuro: COMMON NORMALS: patient oriented x3 SENSORIUM/ORIENTATION: Yes alert Psych: COMMON NORMALS: mental status grossly normal, Normal thought process present, cooperative, normal affect, speech normal, activity/motor behavior normal, denies hallucinations, denies homicidal ideation and denies suicidal ideation SPEECH: Yes normal speech THOUGHT PROCESS: Normal thought process present Course 2 Vital Signs: Vital signs: Vital Signs Temperature 97.6 F 04/01/24 23:47 Pulse Rate 116 H 04/01/24 23:47 Respiratory Rate 18 04/01/24 23:59 Blood Pressure 122/79 04/01/24 23:59 Pulse Oximetry 91 04/01/24 23:59 Oxygen Delivery Me thod Room Air 04/01/24 23:59 MDM - Psych Medical Decision Making Affidavits were read, physical exam was performed, upon talking to the patient and nursing staff and physical exam of the patient please do not corroborate with the affidavit statements of patient Dr. Dc was consulted who agrees patient can be discharged back to his home. Differential Diagnosis Likely chronic schizophrenia Medical Records I reviewed the patient's medical records. Lab Data I reviewed the patient's lab results. 04/02/24 00:06 04/02/24 00:06 Laboratory Results WBC 10.34 10^3/uL (3.29-11.43) 04/02/24 00:06 RBC 5.02 10^6/uL (3.85-5.65) 04/02/24 00:06 Hgb 15.10 g/dL (11.27-16.99) 04/02/24 00:06 Hct 46.4 % (37-53) 04/02/24 00:06 MCV 92.4 fl (82-101) 04/02/24 00:06 MCH 30.1 pg (27-33) 04/02/24 00:06 MCHC 32.5 g/dL (30-55) 04/02/24 00:06 RDW 13.4 % (12.1-15.1) 04/02/24 00:06 Plt Count 276 10^3/cmm (157-399) 04/02/24 00:06 MPV 9.8 fL (7.4-10.4) 04/02/24 00:06 Neut % (Auto) 41.6 % 04/02/24 00:06 Lymph % (Auto) 45.2 % 04/02/24 00:06 [place] % (Auto) 8.5 % 04/02/24 00:06 Eos % (Auto) 3.5 % 04/02/24 00:06 Baso % (Auto) 0.9 % 04/02/24 00:06 Neut # (Auto) 4.31 10^3/uL (1.8-7.7) 04/02/24 00:06 Lymph # (Auto) 4.7 10^3/uL (0.8-4.8) 04/02/24 00:06 [place] # (Auto) 0.9 10^3/uL (0.2-0.9) 04/02/24 00:06 Eos # (Auto) 0.4 10^3/uL (0.0-0.8) 04/02/24 00:06 Baso # (Auto) 0.1 10^3/uL (0.0-0.1) 04/02/24 00:06 Nucleated RBC % (auto) 0 % 04/02/24 00:06 Nucleated RBCs # 0.0 /100WBC 04/02/24 00:06 Sodium Cancelled 04/02/24 00:06 Potassium Cancelled 04/02/24 00:06 Chloride Cancelled 04/02/24 00:06 Carbon Dioxide Cancelled 04/02/24 00:06 Anion Gap Cancelled 04/02/24 00:06 BUN Cancelled 04/02/24 00:06 Creatinine Cancelled 04/02/24 00:06 GFR Calculation Cancelled 04/02/24 00:06 Glucose Cancelled 04/02/24 00:06 Calculated Osmolality Cancelled 04/02/24 00:06 Calcium Cancelled 04/02/24 00:06 Total Bilirubin Cancelled 04/02/24 00:06 AST Cancelled 04/02/24 00:06 ALT Cancelled 04/02/24 00:06 Alkaline Phosphatase Cancelled 04/02/24 00:06 Total Protein Cancelled 04/02/24 00:06 Albumin Cancelled 04/02/24 00:06 Globulin Cancelled 04/02/24 00:06 Salicylates Cancelled 04/02/24 00:06 Acetaminophen Cancelled 04/02/24 00:06 Ethyl Alcohol Cancelled 04/02/24 00:06 No radiology studies performed this visit Discharge Plan Discharge Patient Disposition: Home Clinical Impression: Chronic schizophrenia Condition: Stable Prescriptions: No Action Invega Sustenna 156 mg/mL syringe 156 mg IM Q30D Qty: 1 1RF Rx Instructions: Patient due date for next IM Invega is 04/15/24 Discharge Orders: Discharge ED (Routine); Ordered 04/02/24 Ordered By: Victor M Lopez Patient Instructions: Schizophrenia (ED) Activity Restrictions/Additional Instructions: Please call the green ware caster to reschedule your appointment for your toenails. Otherwise please keep your appointment for your next Invega shot. Coding Level of Care Code ED Motion Picture Photographer for Bola Davis
== END 2024-04-02 00:37 | disposition home or self-care (01) ==
PROVIDERS: Emergency Provider Emergency Medicine
DX: F20.9 Schizophrenia, unspecified (principal); F17.210 Nicotine dependence, cigarettes, uncomplicated
CPT/HCPCS: 36415; 85025; 99283

== ENCOUNTER → 2025-05-16 09:15 | Outpatient (BNVA) | payer MEDICARE, OTHER, SELFPAY | PROVIDERS: Visit Provider Nurse Practitioner Psychiatric/Mental Health | DX: Z79.899 Other long term (current) drug therapy (principal); F20.0 Paranoid schizophrenia | CPT/HCPCS: 80061; 83036 ==

== ENCOUNTER → 2025-05-17 09:43 | Outpatient (BNVA) | payer MEDICARE, MEDICAID, SELFPAY | PROVIDERS: PCP Family Medicine; Visit Provider Family Medicine | DX: Z13.6 Encounter for screening for cardiovascular disorders (principal); E03.9 Hypothyroidism, unspecified; N40.0 Benign prostatic hyperplasia without lower urinary tract symptoms | CPT/HCPCS: 80053; 80061; 84153; 84439; 84443; 85025 ==